=== PATIENT | female | born 1990 | race Caucasian/White ===

== ENCOUNTER 2017-06-08 10:16 | Outpatient (CLI) | payer MEDICAID ==
[~2017-06-08 10:16] MED LIST: IBUP-1222 PO; OXYC-302 PO; PREN1TAB27 PO
[2017-06-08] MEDS ORDERED: CALC200T3 PO (10:31)
[2017-06-08 10:37] VITALS: BP 132/78
[2017-06-08 10:48] LABS: BASOPHILS # (AUTO) 0.03 x10^3/uL (0-0.1); BASOPHILS % (AUTO) 0 % (0-1); EOSINOPHILS # (AUTO) 0.06 x10^3/uL (0-0.4); EOSINOPHILS % (AUTO) 1 % (1-7); LYMPHOCYTES # (AUTO) 1.82 x10^3/uL (1-3.4); LYMPHOCYTES % (AUTO) 27 % (22-44); MD NO; MEAN CORPUSCULAR HEMOGLOBIN 32.9 pg (27.0-34.8); MEAN CORPUSCULAR HGB CONC 34.3 g/dL (32.4-35.8); MEAN PLATELET VOLUME 8.5 fL (7.4-10.4); MONOCYTES # (AUTO) 0.33 x10^3/uL (0.2-0.8); MONOCYTES % (AUTO) 5 % (2-9); NEUTROPHILS # (AUTO) 4.55 x10^3/uL (1.8-6.8); NEUTROPHILS % (AUTO) 67 % (42-75); PLATELET COUNT 182 x10^3/uL (130-400); RED BLOOD COUNT 4.25 x10^6/uL (3.82-5.3); RED CELL DISTRIBUTION WIDTH 13.1 % (9.6-15.2)
[2017-06-08 10:55] LABS: MICROSCOPIC AUTO
[2017-06-08 10:58] LABS: ALANINE AMINOTRANSFERASE 18 U/L (12-78); ALBUMIN 2.6 g/dL (3.4-5.0); ANION GAP 8 mmol/L (5-15); CALCIUM 9.1 mg/dL (8.5-10.1); CHLORIDE 108 mmol/L (98-107); CREATININE 0.72 mg/dL (0.55-1.02)
[2017-06-08 11:00] LABS: ALKALINE PHOSPHATASE 151 U/L (45-117); BILIRUBIN,TOTAL 0.2 mg/dL (0.2-1.0)
[2017-06-08 11:25] LABS: CULTURE INDICATED? NO
== END 2017-06-08 11:55 | disposition home or self-care (01) ==
LOC: LDOP 10:16
PROVIDERS: ATTEND Obstetrics & Gynecology
DX: O13.3 Gestational [pregnancy-induced] hypertension without significant proteinuria, third trimester (principal); Z3A.39 39 weeks gestation of pregnancy
CPT/HCPCS: 36415; 59025; 80053; 81001; 84550; 85025; 99211; G0463

== ENCOUNTER 2017-06-13 11:22 | Inpatient (IN) | payer MEDICAID ==
[~2017-06-13] VITALS: Ht 167.6 cm; Wt 95.9 kg
[~2017-06-13 11:22] MED LIST changes: +CALC200T3 PO
[2017-06-13 11:51] VITALS: BP 137/90
[2017-06-13] MEDS ORDERED: OXYTOCIN 30U/ 0.9% NaCL 500ML 500 ML IV ONE (12:02)
[2017-06-13] MEDS ORDERED: LIDOCAINE 1%, 20ML ONE (13:00)
[2017-06-13] MEDS ORDERED: OXYTOCIN 30U/ 0.9% NaCL 500ML 500 ML ONE (13:00)
[2017-06-13] MEDS ORDERED: NEWBORN KIT ONE (13:00)
[2017-06-13] MEDS ORDERED: MISOPROSTOL 200 MCG TABLET ONE (13:00)
[2017-06-13 13:03] LABS: BASOPHILS # (AUTO) 0.02 x10^3/uL (0-0.1); BASOPHILS % (AUTO) 0 % (0-1); EOSINOPHILS # (AUTO) 0.03 x10^3/uL (0-0.4); EOSINOPHILS % (AUTO) 0 % (1-7); LYMPHOCYTES % (AUTO) 19 % (22-44); MD NO; MEAN CORPUSCULAR HEMOGLOBIN 33.1 pg (27.0-34.8); MEAN CORPUSCULAR HGB CONC 34.5 g/dL (32.4-35.8); MEAN CORPUSCULAR VOLUME 95.9 fL (80-100); MEAN PLATELET VOLUME 9.1 fL (7.4-10.4); MONOCYTES # (AUTO) 0.39 x10^3/uL (0.2-0.8); MONOCYTES % (AUTO) 5 % (2-9); NEUTROPHILS # (AUTO) 6.36 x10^3/uL (1.8-6.8); NEUTROPHILS % (AUTO) 76 % (42-75); PLATELET COUNT 178 x10^3/uL (130-400); RED CELL DISTRIBUTION WIDTH 13.4 % (9.6-15.2)
[2017-06-13] MEDS ORDERED: LACTATED RINGERS 1,000 ML IV SCH (13:43)
[2017-06-13] MEDS ORDERED: D5%-LACTATED RINGERS 1,000 ML IV SCH (13:43)
[2017-06-13] MEDS ORDERED: FENTANYL PF 100 MCG/2ML IVPush PRN (14:00)
[2017-06-13] MEDS ORDERED: ONDANSETRON 2MG/ML, 2ML IVPush PRN (14:00)
[2017-06-13] MEDS ORDERED: CALCIUM CARBONATE 500 MG TAB.CHEW PO PRN (14:00)
[2017-06-13] MEDS ORDERED: OXYTOCIN 30U/ 0.9% NaCL 500ML 500 ML IV SCH ×5 (19:24)
[2017-06-13] MEDS ORDERED: IBUPROFEN 600 MG TABLET ONE (19:34)
[2017-06-13] MEDS ORDERED: IBUPROFEN 600 MG TABLET PO PRN (20:00)
[2017-06-13 21:00] VITALS: BP 131/82
[2017-06-13] MEDS ORDERED: IBUPROFEN 200 MG TABLET PO PRN (21:00)
[2017-06-13] MEDS ORDERED: DIPHENHYDRAMINE 50 MG CAPSULE ONE (21:57)
[2017-06-13] MEDS ORDERED: DIPHENHYDRAMINE 25 MG CAPSULE PO PRN (22:00)
[2017-06-14 00:27] VITALS: BP 124/81
[2017-06-14 02:27] LABS: BASOPHILS # (AUTO) 0.04 x10^3/uL (0-0.1); BASOPHILS % (AUTO) 0 % (0-1); EOSINOPHILS # (AUTO) 0.05 x10^3/uL (0-0.4); EOSINOPHILS % (AUTO) 1 % (1-7); LYMPHOCYTES # (AUTO) 2.06 x10^3/uL (1-3.4); LYMPHOCYTES % (AUTO) 18 % (22-44); MD NO; MEAN CORPUSCULAR HEMOGLOBIN 33.2 pg (27.0-34.8); MEAN CORPUSCULAR HGB CONC 34.3 g/dL (32.4-35.8); MEAN CORPUSCULAR VOLUME 96.7 fL (80-100); MEAN PLATELET VOLUME 8.6 fL (7.4-10.4); MONOCYTES # (AUTO) 0.61 x10^3/uL (0.2-0.8); MONOCYTES % (AUTO) 5 % (2-9); NEUTROPHILS # (AUTO) 8.75 x10^3/uL (1.8-6.8); NEUTROPHILS % (AUTO) 76 % (42-75); PLATELET COUNT 165 x10^3/uL (130-400); RED BLOOD COUNT 3.95 x10^6/uL (3.82-5.3); RED CELL DISTRIBUTION WIDTH 13.6 % (9.6-15.2)
[2017-06-14 04:30] VITALS: BP 138/92
[2017-06-14] MEDS ORDERED: DOCUSATE 100 MG CAPSULE ONE (07:29)
[2017-06-14 08:12] VITALS: BP 143/85
[2017-06-14] MEDS: IBUPROFEN 800 MG TABLET PO PRN ×2 (08:27→18:59)
[2017-06-14] MEDS: PRENATAL VIT/IRON/FA 1 EACH TABLET PO SCH (08:28)
[2017-06-14] MEDS ORDERED: PRENATAL VIT/IRON/FA 1 EACH TABLET PO SCH ×4 (09:00)
[2017-06-14 16:00] VITALS: BP 123/77
[2017-06-14] MEDS: DOCUSATE 100 MG CAPSULE PO PRN (18:59)
[2017-06-14 20:00] VITALS: BP 135/86
[2017-06-15 00:24] VITALS: BP 132/90
[2017-06-15] MEDS: IBUPROFEN 800 MG TABLET PO PRN ×2 (07:38→16:20)
[2017-06-15] MEDS: DOCUSATE 100 MG CAPSULE PO PRN (07:38)
[2017-06-15 07:45] VITALS: BP 136/93
[2017-06-15] MEDS: PRENATAL VIT/IRON/FA 1 EACH TABLET PO SCH (09:00)
[2017-06-15] MEDS ORDERED: IBUP-1222 PO (16:00)
== END 2017-06-15 16:45 | disposition home or self-care (01) | DRG 775 ==
LOC: LDOP 11:22 → LDIP 12:04 → 2NW 20:57
PROVIDERS: ADMIT Obstetrics & Gynecology; ATTEND Obstetrics & Gynecology
PROC: 10E0XZZ Delivery of Products of Conception, External Approach (ICD-10-PCS; principal; 2017-06-13)
PROC: 3E0R3BZ Introduction of Anesthetic Agent into Spinal Canal, Percutaneous Approach (ICD-10-PCS; 2017-06-13)
PROC: 00HU33Z Insertion of Infusion Device into Spinal Canal, Percutaneous Approach (ICD-10-PCS; 2017-06-13)
DX: O80 Encounter for full-term uncomplicated delivery (principal); Z37.0 Single live birth; Z3A.39 39 weeks gestation of pregnancy
CPT/HCPCS: 36415; 82803; 83036; 85025; 86850; 86900; 89060; J7120; Q0114